=== PATIENT | male | born 1990 ===

== ENCOUNTER 2017-11-14 23:59 | Emergency (ER) | payer SELFPAY ==
[2017-11-15 00:14] VITALS: BP 117/72; PULSE 70; RESP 16; TEMP 98.2; O2SAT 96
[2017-11-15] MEDS ORDERED: Lidocaine 2% Inj (20ml) ONE (00:24)
[2017-11-15] MEDS ORDERED: Lidocaine 2% Inj (20ml) INFIL ONE (00:31)
[2017-11-15] MEDS ORDERED: Tdap Vaccine 0.5 ml Vial (10-64 yrs) IM ONE (01:11)
--- NOTE | 2017-11-15 01:14 | ED PDOC ---
Upper Extremity Pain/Injury Time Seen by Provider: 11/15/17 00:20 Chief Complaint (Nursing): Abnormal Skin Integrity History/Exam Limitations: no limitations Onset/Duration Of Symptoms: Mins Current Symptoms Are (Timing): Still Present Additional History Per: Patient Additional Complaint(s): Patient sustained laceration to R index second finger after accdientally cutting it against aluminum. Unsure of tetanus. No sensation/motor changes. Past Medical History Reviewed: Historical Data, Nursing Documentation, Vital Signs Vital Signs: Last Vital Signs Temp 98.2 F 11/15/17 00:12 Pulse 70 11/15/17 00:12 Resp 16 11/15/17 00:12 BP 117/72 11/15/17 00:12 Pulse Ox 96 11/15/17 00:12 - Family History Family History: States: Unknown Family Hx - Allergies Allergies/Adverse Reactions: Allergies Allergy/AdvReac Type Severity Reaction Status Date / Time No Known Allergies Allergy Verified 11/15/17 00:12 Review of Systems ROS Statement: Except As Marked, All Systems Reviewed And Found Negative Physical Exam - Reviewed Nursing Documentation Reviewed: Yes Vital Signs Reviewed: Yes - Physical Exam Appears: Positive for: Well, Non-toxic, No Acute Distress Head Exam: Positive for: ATRAUMATIC, NORMAL INSPECTION, NORMOCEPHALIC Skin: Positive for: Normal Color, Warm Eye Exam: Positive for: EOMI, Normal appearance, PERRL Extremity: Positive for: Other (R distal 2nd phalanx 2cm laceration past DIP, sensation and motor intact, no deficit) Neurologic/Psych: Positive for: Alert, Oriented - ECG O2 Sat by Pulse Oximetry: 96 Pulse Ox Interpretation: Normal Medical Decision Making Medical Decision Making: Distal phalanx laceration, tetanus was updated last year according to patient. Will repair and d/c home. Wound care instructions given. Procedures - Laceration/Wound Repair Right Finger Wound Length (cm): 3 Wound's Depth, Shape: superficial Wound Explored: clean Anesthesia: 1% Lidocaine (2% lidocaine without epi) Volume Anesthetic (ccs): 50 Wound Debrided: minimal Wound Repaired With: Sutures Suture Size/Type: 5:0 (6) Layer Closure?: No Wound Complexity: Simple Disposition - Clinical Impression Clinical Impression: Finger laceration - Disposition Referrals: [facility] [place] [Outside] Disposition Time: 01:15 Condition: GOOD Instructions: Laceration Repair With Stitches (DC), Common Finger Injuries (DC) Forms: [employer] ([place])
== END 2017-11-15 01:20 | disposition home or self-care (01) ==
LOC: H.ER 23:59
DX: S61.210A Laceration without foreign body of right index finger without damage to nail, initial encounter (principal); W26.8XXA Contact with other sharp object(s), not elsewhere classified, initial encounter; Y92.89 Other specified places as the place of occurrence of the external cause

== ENCOUNTER 2017-11-24 21:11 | Emergency (ER) | payer SELFPAY ==
[2017-11-24 21:32] VITALS: BP 108/74; PULSE 65; RESP 20; TEMP 98; O2SAT 99
--- NOTE | 2017-11-24 21:38 | ED PDOC ---
HPI: Wound Care - HPI Time Seen by Provider: 11/24/17 21:29 Chief Complaint (Nursing): Suture/Staple Removal Chief Complaint (Provider): Wound Care - Suture removal History Per: Patient History Of Present Illness: 27 year old male presents to the emergency department for suture removal. Patient had stitches put on his right index finger. Denies fever, pain, discharge, numbness, tingling. Exam Limitations: no limitations Location Of Injury: Right: Hand (Index finger) Past Medical History Reviewed: Historical Data, Nursing Documentation, Vital Signs Vital Signs: Last Vital Signs Temp 98 F 11/24/17 21:30 Pulse 65 11/24/17 21:30 Resp 20 11/24/17 21:30 BP 108/74 11/24/17 21:30 Pulse Ox 99 11/24/17 21:30 - Medical History PMH: No Chronic Diseases - Surgical History Surgical History: No Surg Hx - Family History Family History: States: Unknown Family Hx - Social History Current smoker - smoking cessation education provided: Yes (Light Smoker < 10 Cigarettes Daily) Alcohol: None Drugs: Denies - Allergies Allergies/Adverse Reactions: Allergies Allergy/AdvReac Type Severity Reaction Status Date / Time No Known Allergies Allergy Verified 11/15/17 00:12 Review of Systems ROS Statement: Except As Marked, All Systems Reviewed And Found Negative Musculoskeletal: Positive for: Other (Suture removal from right index finger). Negative for: Hand Pain Physical Exam - Reviewed Nursing Documentation Reviewed: Yes Vital Signs Reviewed: Yes - Physical Exam Appears: Positive for: No Acute Distress Skin: Positive for: Normal Color, Warm, Dry. Negative for: Rash Extremity: Positive for: Other ([address] on palmar aspect of right second digit on distal phalanx no surrounding erythema; no dehiscence; no discharge.). Negative for: Tenderness, Deformity, Swelling Neurologic/Psych: Positive for: Alert, Oriented - ECG O2 Sat by Pulse Oximetry: 99 (RA) Pulse Ox Interpretation: Normal Medical Decision Making Medical Decision Makin Initial Impression 27 year old male presenting for suture removal Initial Plan: * Reevaluation Documented by Mervat Davis acting as a scribe for Camilo Hartman PA-c. All medical record entries made by the Scribe were at my direction and personally dictated by me. I have reviewed the chart and agree that the record accurately reflects my personal performance of the history, physical exam, medical decision making, and the department course for this patient. I have also personally directed, reviewed, and agree with the discharge instructions and disposition. Disposition - Clinical Impression Clinical Impression: Encounter for removal of sutures - Patient ED Disposition Is Patient to be Admitted: No Counseled Patient/Family Regarding: Studies Performed - Disposition Referrals: [facility] [Outside] Disposition: Routine/Home Disposition Time: 21:40 Condition: STABLE Instructions: Stitches Removal Forms: Jason Pierce (Romansh), [facility] School/Work Excuse Print Language: BRAZILIAN - POA Present On Arrival: None
== END 2017-11-24 21:43 | disposition home or self-care (01) ==
LOC: H.ER 21:11
DX: Z48.02 Encounter for removal of sutures (principal)